=== PATIENT | female | born 1980 | race Caucasian/White ===

== ENCOUNTER → 2016-09-07 | Outpatient (CLI) | payer OTHER ==
[~2016-09-07] MED LIST: NKHM; PERCOCET 325 MG1 TA2 PO
[2016-09-07 13:26] LABS: BASO % 0.3 % (0.0-1.0); EOS # 0.1 10*3/uL (0.0-0.4); EOS % 1.2 % (1.0-4.0); HEMATOCRIT 39.9 % (37.0-47.0); HEMOGLOBIN 13.4 g/dl (12.0-16.0); LYMPH % 34.8 % (27.0-41.0); MEAN CELL VOLUME 90.7 fl (81.0-99.0); MEAN CORPUSCULAR HGB 30.5 pg (27.0-31.0); MEAN CORPUSCULAR HGB CONC 33.6 g/dl (33.0-37.0); MEAN PLATELET VOLUME 10.5 fl (9.6-12.3); MONO # 0.5 10*3/uL (0.1-1.0); MONO % 7.8 % (3.0-9.0); NEUT # 3.2 10*3/uL (2.3-7.9); NEUT % 55.7 % (47.0-73.0); PLATELET COUNT AUTOMATED 197 10*3/uL (130-400); RED CELL DISTRI WIDTH 12.6 % (0-14.5); WHITE BLOOD COUNT 5.8 10*3/uL (4.8-10.8)
== END | disposition home or self-care (01) ==
LOC: LAB 12:24
PROVIDERS: Obstetrics & Gynecology
DX: R87.611 Atypical squamous cells cannot exclude high grade squamous intraepithelial lesion on cytologic smear of cervix (ASC-H) (principal); Z86.001 Personal history of in-situ neoplasm of cervix uteri

== ENCOUNTER → 2016-09-14 | Day surgery (SDC) | payer OTHER ==
[~2016-09-14] VITALS: Ht 170.1 cm; Wt 74.8 kg
--- NOTE | ~2016-09-14 | WRIGHTHP ---
[place], [place] PATIENT HISTORY AND PHYSICAL EXAM NAME: MAHENDRA SANTOS [facility] #: [id number] UNIT #: [id number] ROOM: DOCTOR: ABBI MALLORY MD BIRTHDATE: [birth year] DOS: 09/14/2016 HISTORY OF PRESENT ILLNESS: This is a 35-year-old white female, 3, para 3, AB 0, whose last menstrual period is uncertain because of her having a Mirena IUD in place since 11/18/2011. The patient has had a really challenging time with her Pap smears having had an abnormal Pap in 2010 with a cold knife conization being performed for CATHLEEN 3. 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 Her ECC was negative, but the patient has had so many colposcopies and biopsies, etc., that we in the past discussed LAVH as an option. The patient, however, has reestablished in her old job and is doing very well and does not want to take the time to recover from a major operation, but realizes that if she does not have another colposcopy and biopsies that we will have to do some therapy as well as diagnosis to the cervix. To that end, the patient is quite familiar with a cold knife conization and since we just performed a LEEP and not long ago colposcopy, we will proceed with a repeat cold knife conization of the ectocervix. I have advised the patient I will try to preserve her IUD strings from the Mirena, but I cannot guarantee anything. I do not intend to remove the IUD, but I may remove the strings amidst the procedure. She does understand, she understands the risks and benefits of the procedure itself and had signed a consent and is scheduled for 09/14/2016. PAST MEDICAL HISTORY: Besides what I just reviewed revealed 3 pregnancies and 3 vaginal deliveries. She has had a hernia repair in 2011. SOCIAL HISTORY: She does not smoke and does drink socially. ALLERGIES: She has no known allergies. MEDICATIONS: She is on no medications at this time. REVIEW OF SYSTEMS: Stable. FAMILY HISTORY: Reveals the paternal grandmother from colon cancer. Maternal grandfather with gastric cancer and her older sister has MS. PHYSICAL EXAMINATION: GENERAL: Reveals a pleasant white female in no significant distress. VITAL SIGNS: Blood pressure is 116/80. She is 5 feet 6 inches, 158 pounds, BMI is 25.5 and her oxygen sat is 99% on room air. HEENT: Grossly intact. NECK: Grossly intact. LUNGS: Grossly intact. CARDIAC: Grossly intact. BREASTS: Grossly intact. ABDOMEN: Grossly intact. EXTREMITIES: Grossly intact. NEUROLOGIC: Grossly intact. [place], [place] PATIENT HISTORY AND PHYSICAL EXAM NAME: MAHENDRA SANTOS UNIT #: [id number] ROOM: DOCTOR: ABBI MALLORY MD BIRTHDATE: [birth year] GENITOURINARY: External genitalia, vagina normal. Cervix as noted above. The uterus is normal in size, configuration, mobility and nontender, anteverted and anteflexed and the adnexa are negative. RECTAL: Deferred. ASSESSMENT: The patient with a history of significant cervical intraepithelial neoplasia 3 on a number of occasions already having been treated with LEEP and cold knife cone on separate occasions as well as a number of colposcopies for the same and now with an ASCUS Pap but cannot rule out a high-grade squamous intraepithelial lesion once again. To that end, on 09/14/2016 the patient will undergo cold knife conization of the ectocervix with an attempt of preserving the Mirena IUD strings if possible. ABBI MALLORY MD CM:HISPHYS:PATIENT HISTORY AND PHYSICAL EXAMINATION [id number] SLICK MALLORY MD 09/09/16 0042 interface
--- NOTE | ~2016-09-14 | O ---
[place], [place] OPERATIVE NOTE NAME: MAHENDRA SANTOS [facility] #: [id number] UNIT #: [id number] ROOM: DOCTOR: ABBI GO MD BIRTHDATE: [birth year] DOS: 09/14/2016 OPERATIVE DOCTOR: Dr. Slick Richardson, her primary care physician. PREOPERATIVE DIAGNOSIS: Recurrent cervical atypicalities ranging up to cervical intraepithelial neoplasia 3 with again a most recent Pap revealing ASCUS, but cannot rule out high grade squamous intraepithelial lesion. The patient desires hysterectomy, but because of work and other situations cannot proceed with this at present and therefore, we are repeating the cold knife conization that she has already had in the past. POSTOPERATIVE DIAGNOSIS: Recurrent cervical atypicalities ranging up to cervical intraepithelial neoplasia 3 with again a most recent Pap revealing ASCUS, but cannot rule out high grade squamous intraepithelial lesion. The patient desires hysterectomy, but because of work and other situations cannot proceed with this at present and therefore, we are repeating the cold knife conization that she has already had in the past. OPERATION: Cold knife conization of the ectocervix. SURGEON: Abbi Go M.D. ANESTHESIA: MAC. ESTIMATED BLOOD LOSS: Less than 40 mL. REPLACEMENTS: IV fluids and Toradol. COMPLICATIONS: There were no complications. CONDITION: The patient's condition to recovery stable. OPERATIVE SUMMARY: The patient was taken to the operating room in supine position. MAC anesthesia, lithotomy position, prepped and draped in routine manner. Bladder was straight catheterized for about 40-50 mL of clear urine. Cervix was visualized injected in a circumferential manner with 1% lidocaine with epinephrine followed by placement of [id number] 0 chromic sutures at 3 and 9 o'clock. We then removed the cone shaped portion of the ectocervix tried to leave the IUD strings intact. We cut the specimen at 6 o'clock. Once this was completed, we placed Sturmdorf sutures at 6 and 12 o'clock with adequate hemostasis. We then placed a piece of Surgicel dipped in Monsel's solution into the cervical defect. The patient was observed for some time and noted good hemostasis and therefore cleaned off, taken out of lithotomy position, awakened, and then transferred to recovery in satisfactory condition with good hemostasis, stable vital signs, stable sponge and instrument count. [place], [place] OPERATIVE NOTE NAME: MAHENDRA SANTOS UNIT #: [id number] ROOM: DOCTOR: ABBI GO MD BIRTHDATE: [birth year] ABBI GO MD CM:OPRECORD:OPERATIVE NOTE [id number] 20 SLICK GO MD 09/14/16 172 interface
[2016-09-14 11:53] VITALS: BP 116/60
[2016-09-14 14:34] VITALS: BP 105/54
[2016-09-14 14:45] VITALS: BP 105/54
[2016-09-14 15:00] VITALS: BP 108/61
[2016-09-14 15:15] VITALS: BP 115/70
== END | disposition home or self-care (01) ==
LOC: SDC 09-07 12:30
DX: R87.611 Atypical squamous cells cannot exclude high grade squamous intraepithelial lesion on cytologic smear of cervix (ASC-H) (principal); Z98.890 Other specified postprocedural states

== ENCOUNTER → 2017-03-29 | Outpatient (CLI) | payer OTHER ==
[2017-03-29 08:08] LABS: HEMATOCRIT 37.3 % (37.0-47.0); HEMOGLOBIN 12.5 g/dl (12.0-16.0); MEAN CELL VOLUME 89.7 fl (81.0-99.0); MEAN CORPUSCULAR HGB CONC 33.5 g/dl (33.0-37.0); MEAN PLATELET VOLUME 10.3 fl (9.6-12.3); RED BLOOD COUNT 4.16 10*6/uL (4.10-5.10); RED CELL DISTRI WIDTH 12.7 % (0-14.5); WHITE BLOOD COUNT 3.8 10*3/uL (4.8-10.8)
[2017-03-29 08:39] LABS: ALBUMIN 3.6 gm/dl (3.1-4.5); BUN 17 mg/dl (7-24); CHLORIDE 108 mmol/L (98-107); POTASSIUM 3.8 mmol/L (3.5-5.1); SODIUM 141 mmol/L (136-145)
[2017-03-29 08:43] LABS: ALKALINE PHOSPHATASE 61 U/L (45-117); CHOLESTEROL 125 mg/dL (<200); CREATININE 0.71 mg/dL (0.55-1.02); HDL CHOLESTEROL 45 mg/dl (40-60); LDL CHOLESTEROL 65 mg/dL (9-159); SGOT/AST 5 IU/L (3-35); SGPT/ALT 15 U/L (12-78); TOTAL PROTEIN 7.1 gm/dL (6.4-8.2); TRIGLYCERIDES 76 mg/dl (<150); VLDL CHOLESTEROL 15 mg/dL (6-40)
== END | disposition home or self-care (01) ==
LOC: LAB 07:44
PROVIDERS: Family Medicine
DX: E78.00 Pure hypercholesterolemia, unspecified (principal); E55.9 Vitamin D deficiency, unspecified; R53.83 Other fatigue; R13.10 Dysphagia, unspecified

== ENCOUNTER → 2017-03-31 | Outpatient (CLI) | payer OTHER | END | disposition home or self-care (01) | LOC: RAD 07:41 | DX: K21.9 Gastro-esophageal reflux disease without esophagitis (principal); Q89.9 Congenital malformation, unspecified ==

== ENCOUNTER 2017-09-27 16:40 | Emergency (ER) | payer OTHER ==
[~2017-09-27] VITALS: Wt 70.3 kg
[2017-09-27 16:44] VITALS: BP 145/70
== END 2017-09-27 17:55 | disposition home or self-care (01) ==
LOC: ED 16:40
DX: M77.42 Metatarsalgia, left foot (principal)

== ENCOUNTER → 2018-04-21 | Outpatient (CLI) | payer OTHER ==
--- NOTE | ~2018-04-21 | HM ---
[place], [place] HOLTER MONITOR REPORT NAME: MAHENDRA SANTOS [facility] #: [id number] UNIT #: [id number] ROOM: DOCTOR: TYLOR FARRELL MD BIRTHDATE: [birth year] DOS: 04/22/2018 24-HOUR HOLTER MONITOR Study was recorded from 04/21/2018 through the 04/22/2018. The recording was analyzed, interpreted and dictated on 04/22/2018. REFERRING PHYSICIAN: Chevy CLAROS. INDICATIONS: Palpitations. PROCEDURE: The patient was monitored for 24 hours utilizing a Holter device. The underlying rhythm was normal sinus with an average heart rate of 68. The sinus heart rate varied from 45 at 4:15 a.m. to 119 at 7:55 p.m. Rare PVCs were recorded at less than 1 per hour. There was no ventricular tachycardia or prolonged pause recorded. Rare premature atrial contractions were also recorded at a rate of less than 1 per hour. One atrial couplet was seen. There was no SVT. The patient returned a diary, but no symptoms were listed. IMPRESSION: Normal 24-hour Holter monitor. TYLOR FARRELL MD CM:HOLTER:HOLTER MONITOR REPORT [id number] TYLOR FARRELL MD
== END | disposition home or self-care (01) ==
LOC: CARD 08:37
DX: R00.2 Palpitations (principal)

== ENCOUNTER → 2018-05-02 | Outpatient (CLI) | payer OTHER | END | disposition home or self-care (01) | LOC: RAD 08:05 | DX: R00.2 Palpitations (principal) ==

== ENCOUNTER → 2020-03-26 | Outpatient (CLI) | payer OTHER | END | disposition home or self-care (01) | LOC: MAMMO 17:06 | PROVIDERS: ATTEND Nurse Practitioner Women's Health | DX: Z12.31 Encounter for screening mammogram for malignant neoplasm of breast (principal) ==

== ENCOUNTER → 2020-04-11 | Outpatient (CLI) | payer OTHER | LOC: MAMMO 08:37 | PROVIDERS: ATTEND Nurse Practitioner Women's Health | DX: N63.11 Unspecified lump in the right breast, upper outer quadrant (principal); N64.89 Other specified disorders of breast; R92.8 Other abnormal and inconclusive findings on diagnostic imaging of breast; R59.0 Localized enlarged lymph nodes ==

== ENCOUNTER → 2020-08-02 | Outpatient (CLI) | payer OTHER | END | disposition home or self-care (01) | LOC: RAD 10:40 | PROVIDERS: ATTEND Nurse Practitioner Primary Care | DX: G89.29 Other chronic pain (principal); R20.2 Paresthesia of skin; M25.511 Pain in right shoulder; M25.512 Pain in left shoulder ==

== ENCOUNTER → 2022-06-08 | Outpatient (CLI) | payer OTHER | END | disposition home or self-care (01) | LOC: MAMMO 07:21 | PROVIDERS: ATTEND Nurse Practitioner Women's Health | DX: Z12.31 Encounter for screening mammogram for malignant neoplasm of breast (principal) ==

== ENCOUNTER → 2022-08-03 | Outpatient (CLI) | payer OTHER | END | disposition home or self-care (01) | LOC: CARD 11:30 | PROVIDERS: ATTEND Internal Medicine Cardiovascular Disease | DX: R06.02 Shortness of breath (principal) ==

== ENCOUNTER → 2023-10-25 | Outpatient (CLI) | payer OTHER | END | disposition home or self-care (01) | LOC: MAMMO 01:27 | PROVIDERS: ATTEND Physician Assistant | DX: Z12.31 Encounter for screening mammogram for malignant neoplasm of breast (principal); R92.333 Mammographic heterogeneous density, bilateral breasts; N64.89 Other specified disorders of breast ==

== ENCOUNTER → 2024-10-25 | Outpatient (CLI) | payer OTHER | END | disposition home or self-care (01) | LOC: MAMMO 10-10 17:00 | PROVIDERS: ATTEND Physician Assistant | DX: Z12.31 Encounter for screening mammogram for malignant neoplasm of breast (principal); R92.333 Mammographic heterogeneous density, bilateral breasts; N64.89 Other specified disorders of breast ==